=== PATIENT | female | born 1960 | race Caucasian/White ===

== ENCOUNTER 2019-09-06 09:27 | Day surgery (SDC) | payer OTHER ==
[~2019-09-06 09:27] MED LIST: Metoclopramide 10 MG/2 ML SDV IV PRN; Sodium Chloride 0.9% 1,000 ML IV SCH
[2019-09-06] MEDS ORDERED: Propofol 200 MG/20 ML SDV ONE (10:25)
[2019-09-06 11:14] VITALS: BP 104/70; PULSE 65
--- NOTE | 2019-09-06 16:50 | OR ---
DATE OF OPERATION: 09/06/2019 SURGEON: Jaime Granados MD PREOPERATIVE DIAGNOSIS: Family history of colon cancer. POSTOPERATIVE DIAGNOSIS: Family history of colon cancer. PROCEDURE: Colonoscopy with polypectomy. ANESTHESIA: MAC. ESTIMATED BLOOD LOSS: Minimal. COMPLICATIONS: None. INDICATION FOR THE PROCEDURE: The patient is a 59-year-old female here today for a colonoscopy. She does have a brother who from colon cancer at a young age. Last colonoscopy was 5 years ago, normal per patient. Denies any change in bowel habits since that time. DESCRIPTION OF PROCEDURE: Informed consent was obtained from the patient. The patient was taken to the operating room and placed on table in left lateral decubitus position. Monitored anesthesia care was administered. Colonoscope then advanced through the anus directed toward the cecum. Cecum was reached and identified by appendiceal orifice and ileocecal valve. Colonoscope then slowly withdrawn. She did have a few small diverticula in the sigmoid colon. A small sessile polyp in the rectum removed by hot forceps polypectomy. The rectum was otherwise unremarkable. Colonoscope then withdrawn. FINDINGS: Mild sigmoid diverticulosis as well as benign-appearing rectal polyp. RECOMMENDATIONS: We will follow up on pathology. Otherwise, we would recommend repeat surveillance colonoscopy in 5 years due to personal history of polyps as well as family history of colon cancer. SIDRA/SHAWN /[id number]
== END 2019-09-06 11:45 | disposition home or self-care (01) ==
LOC: LB.SDS 09:27
PROVIDERS: ATTEND Surgery
DX: Z12.11 Encounter for screening for malignant neoplasm of colon (principal); D12.8 Benign neoplasm of rectum; K57.30 Diverticulosis of large intestine without perforation or abscess without bleeding; E78.00 Pure hypercholesterolemia, unspecified; R03.1 Nonspecific low blood-pressure reading; Z80.0 Family history of malignant neoplasm of digestive organs; Z88.2 Allergy status to sulfonamides; Z98.890 Other specified postprocedural states; Z79.899 Other long term (current) drug therapy
CPT/HCPCS: 45384; 88305; G0121; J2704; J7030

== ENCOUNTER 2025-01-07 10:19 | Day surgery (SDC) | payer MEDICARE ==
[2025-01-07] MEDS ORDERED: Propofol 500 MG/50 ML SDV ONE (12:15)
[2025-01-07 12:39] VITALS: BP 107/66; PULSE 63
== END 2025-01-07 13:55 | disposition home or self-care (01) ==
LOC: LB.SDS 10:19
PROVIDERS: ATTEND Surgery
DX: Z12.11 Encounter for screening for malignant neoplasm of colon (principal); D12.3 Benign neoplasm of transverse colon; D12.5 Benign neoplasm of sigmoid colon; D12.8 Benign neoplasm of rectum; K57.30 Diverticulosis of large intestine without perforation or abscess without bleeding; K64.9 Unspecified hemorrhoids; Z80.0 Family history of malignant neoplasm of digestive organs; Z88.2 Allergy status to sulfonamides; Z79.899 Other long term (current) drug therapy
CPT/HCPCS: J2704; J7030